=== PATIENT | female | born 1995 | race Asian ===

== ENCOUNTER 2024-03-02 16:39 | Emergency (ER) | payer OTHER ==
[2024-03-02 17:37] LABS: Absolute Basophils 0.1 K/uL (0-0.5); Absolute Eosinophils 0.1 K/uL (0-0.5); Absolute Monocytes 0.6 K/uL (0.1-1.3); Absolute Neutrophil 3.9 K/uL (1.8-8.0); Basophils % 0.8 % (0-1.3); Eosinophils % 1.7 % (0-4.4); Hematocrit 38.2 % (36.0-45.0); Hemoglobin 12.8 g/dL (12.0-15.0); Lymphocytes % 39.1 % (15.3-44.8); MCH 28.9 pg (27.0-35.0); MCHC 33.4 g/dL (32.0-36.0); MCV 86.6 fL (80-100); MPV 7.4 fL (7.6-11.3); Monocytes % 7.7 % (3.3-12.3); Neutrophils % 50.7 % (41.7-73.7); Platelets 272 thou/uL (152-406); RBC Red Blood Cell Count 4.42 M/uL (3.86-4.86); Red Cell Distribution Width 13.7 % (12.1-15.2)
[2024-03-02 17:40] LABS: Specific Gravity 1.024 (1.005-1.030); Sqamous Epithelial <5 /HPF (None Seen); Urine Bacteria None Seen /HPF (<20); Urine Bilirubin NEGATIVE (Negative); Urine Blood 1+ (Negative); Urine Clarity Clear (Clear); Urine Color Light-Yellow (Yellow); Urine Culture Reflex Order NOT NEEDED; Urine Glucose TRACE (Negative); Urine Ketones NEGATIVE (Negative); Urine Microscopic Reflex YN ORDER UMIC; Urine Mucus Slight /HPF (None Seen); Urine Nitrite NEGATIVE (Negative); Urine Protein NEGATIVE (Negative); Urine RBC <5 /HPF (None Seen); Urine Urobilinogen Normal (Normal); Urine WBC <5 /HPF (<5); Urine pH 6.5 (5.0-7.0)
--- NOTE | 2024-03-02 17:49 | RAD REPORT ---
EXAM DESCRIPTION: US - Transvaginal OB - 03/02/2024 5:43 pm CLINICAL HISTORY: bleeding COMPARISON: <Comparisons> FINDINGS: A single gestational sac is seen within the uterus. The sac is oblong. No yolk sac or embr yo seen. The maternal adnexa and ovaries are within normal limits. Normal Doppler blood flow was demonstrated to both ovaries. IMPRESSION: Single oblong gestational sac in the fundal aspect of the uterus. There is no evidence o f yolk sac or embryo at this time. Recommend serial HCG level measurements and follow-up sonography in 7-10 days.
[2024-03-02 18:03] LABS: Specific Gravity 1.024 (1.005-1.030)
[2024-03-02 18:19] LABS: Anion Gap 7.8 mEq/L (5.0-15.0)
[2024-03-02 18:21] LABS: Potassium 3.8 mEq/L (3.5-5.1)
--- NOTE | 2024-03-02 19:09 | ER ---
Nurse's Notes [facility] Name: Eli Ashton Age: 28 yrs Sex: Female : 1995 Arrival Date: 03/02/2024 Time: 16:39 Bed 5 Private MD: Diagnosis: Threatened Presentation: 03/02 16:47 Chief complaint: Patient states: approx 6 weeks , started spotting yesterday. iw Coronavirus screen: At this time, the client does not indicate any symptoms associated with coronavirus-19. Ebola Screen: Patient negative for fever greater than or equal to 101.5 degrees Fahrenheit, and additional compatible Ebola Virus Disease symptoms Patient denies exposure to infectious person. Patient denies travel to an Ebola-affected area in the 21 days before illness onset. No symptoms or risks identified at this time. Initial Sepsis Screen: Does the patient meet any 2 criteria? No. Patient's initial sepsis screen is negative. Does the patient have a suspected source of infection? No. Patient's initial sepsis screen is negative. Risk Assessment: Do you want to hurt yourself or someone else? Patient reports no desire to harm self or others. Onset of symptoms was March 01, 2024. 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 - Infectious Disease History:: Denies. - Social history:: Smoking status: Patient denies any tobacco usage or history of. Screenin:23 [facility] ED Fall Risk Assessment (Adult) History of falling in the last 3 months, kc6 including since admission No falls in past 3 months (0 pts) Confusion or Disorientation No (0 pts) Intoxicated or Sedated No (0 pts) Impaired Gait No (0 pts) Mobility Assist Device Used No (0 pt) Altered Elimination No (0 pt) Score/Fall Risk Level 0 - 2 = Low Risk. Abuse screen: Denies threats or abuse. Denies injuries from another. Nutritional screening: No deficits noted. Tuberculosis screening: No symptoms or risk factors identified. Assessment: 17:23 General: Appears in no apparent distress. comfortable, well groomed, well developed, kc6 Behavior is calm, cooperative, appropriate for age. Pain: Denies pain. Neuro: Level of Consciousness is awake, alert, obeys commands, Oriented to person, place, time, situation, Appropriate for age. Cardiovascular: Capillary refill < 3 seconds. Respiratory: Airway is patent Trachea midline Respiratory effort is even, unlabored, Respiratory pattern is regular, symmetrical. GI: No signs and/or symptoms were reported involving the gastrointestinal system. : Urine is clear, Reports vaginal bleeding that is bright red, spotty. EENT: No signs and/or symptoms were reported regarding the EENT system. Derm: No signs and/or symptoms reported regarding the dermatologic system. Skin is intact, is healthy with good turgor, Skin is pink, warm \T\ dry. Musculoskeletal: No signs and/or symptoms reported regarding the musculoskeletal system. Circulation, motion, and sensation intact. Capillary refill < 3 seconds, Range of motion: intact in all extremities. 18:23 Reassessment: Patient appears in no apparent distress at this time. No changes from kc6 previously documented assessment. Patient and/or family updated on plan of care and expected duration. Pain level reassessed. Patient is alert, oriented x 3, equal unlabored respirations, skin warm/dry/pink. Vital Signs: 16:47 BP 108 / 73; Pulse 86; Resp 16; Temp 98.3; Pulse Ox 99% ; Weight 65.77 kg; Height 4 ft. iw 9 in. ; 19:26 BP 110 / 76; Pulse 85; Resp 18; Temp 98; Pulse Ox 99% on R/A; rv 16:47 Body Mass Index 31.38 (65.77 kg, 144.78 cm) iw ED Course: 16:41 Patient arrived in ED. iw 16:42 Mary Lou Hardy [facility]-C [facility]. kb 16:42 Joel Anthony MD is Attending Physician. kb 16:47 Triage completed. iw 16:47 Arm band placed on. kc6 17:06 Senait Gonsalves, FRANKLIN is Primary Nurse. kc6 17:23 Patient has correct armband on for positive identification. Bed in low position. Call kc light in reach. Side rails up X 1. Client placed on continuous cardiac and pulse oximetry monitoring. NIBP monitoring applied. 17:44 Transvaginal OB In Process Unspecified. EDMS 19:00 Report given to FRANKLIN Katz. kc6 19:27 No provider procedures requiring assistance completed. IV discontinued, intact, rv bleeding controlled, No redness/swelling at site. Pressure dressing applied. Administered Medications: No medications were administered Medication: 19:27 VIS not applicable for this client. rv Outcome: 19:08 Discharge ordered by . abilio 19:28 Discharged to home ambulatory, rv 19:28 Condition: good 19:28 Discharge instructions given to patient, Instructed on discharge instructions, follow up and referral plans. Demonstrated understanding of instructions, follow-up care, 19:29 Patient left the ED. rv Signatures: Dispatcher [employer] EDMS Mary Lou Hardy, MODEL BUILDER DISPLAY-C MODEL BUILDER DISPLAY-Matilde Finn RN RN iw Vicente, Ronaldo, RN RN rv Campbell, Kaitlyn, RN RN kc6
--- NOTE | 2024-03-02 19:09 | EDPHYS ---
Physician Documentation [facility] Name: Eli Ashton Age: 28 yrs Sex: Female : 1995 Arrival Date: 03/02/2024 Time: 16:39 Bed 5 Private MD: ED Physician Joel Anthony HPI: 03/02 16:44 This 28 yrs old Female presents to ER via Unassigned with complaints of Vaginal kb Bleeding, + Preg <12wks. 16:44 Pt is a 28 year old female who presents for vaginal spotting that started yesterday. kb Denies abd pain. A1. LMP 12/14/23. . 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 - Infectious Disease History:: Denies. - Social history:: Smoking status: Patient denies any tobacco usage or history of. ROS: 16:44 Constitutional: As per HPI kb Exam: 16:44 Constitutional: This is a well developed, well nourished patient who is awake, alert, kb and in no acute distress. Head/Face: Normocephalic, atraumatic. ENT: Moist Mucous membranes Cardiovascular: Regular rate Respiratory: Respirations even and unlabored. No increased work of breathing. Talking in full sentences Abdomen/GI: Soft, non-tender. No distention Skin: Warm, dry with normal turgor. Normal color. MS/ Extremity: Pulses equal, no cyanosis. Neurovascular intact. Full, normal range of motion. Neuro: Awake and alert, GCS 15, oriented to person, place, time, and situation. Moves all extremities. Normal gait. Vital Signs: 16:47 BP 108 / 73; Pulse 86; Resp 16; Temp 98.3; Pulse Ox 99% ; Weight 65.77 kg; Height 4 ft. iw 9 in. ; 19:26 BP 110 / 76; Pulse 85; Resp 18; Temp 98; Pulse Ox 99% on R/A; rv 16:47 Body Mass Index 31.38 (65.77 kg, 144.78 cm) iw MDM: 16:42 Patient medically screened. kb 16:45 Data reviewed: vital signs, nurses notes. kb 19:09 Differential diagnosis: threatened Ab, inevitable Ab. Counseling: I had a detailed kb discussion with the patient and/or guardian regarding the historical points, exam findings, and any diagnostic results supporting the discharge/admit diagnosis, lab results, radiology results, the need for outpatient follow up, an OB/Gyne specialist, to return to the emergency department if symptoms worsen or persist or if there are any questions or concerns that arise at home. ED course: Pt has US scheduled for and follow up with OB on Friday. 03/02 17:33 Order name: Basic Metabolic Panel EDOK 03/02 17:33 Order name: HCG, Quantitative [facility] 03/02 17:33 Order name: CBC with Automated Diff [facility] 03/02 17:33 Order name: Test, Urine [facility] 03/02 17:33 Order name: Urinalysis w/ reflexes [facility] 03/02 17:33 Order name: ABO/RH typing [facility]OK 03/02 17:40 Order name: Test, Urine; Complete Time: 18:09 EDMS 03/02 17:40 Order name: Urinalysis w/ reflexes; Complete Time: 17:40 EDOK 03/02 17:42 Order name: CBC with Automated Diff; Complete Time: 17:43 EDMS 03/02 18:21 Order name: Basic Metabolic Panel; Complete Time: 18:23 EDMS 03/02 18:21 Order name: HCG, Quantitative; Complete Time: 18:23 [facility]OK 03/02 18:47 Order name: ABO/RH typing; Complete Time: 18:56 EDMS 03/02 17:30 Order name: Transvaginal OB [facility]OK 03/02 17:50 Order name: US; Complete Time: 17:52 EDMS 03/02 16:46 Order name: IV Saline Lock; Complete Time: 17:22 kb 03/02 16:46 Order name: Labs collected and sent; Complete Time: 17:22 kb 03/02 16:46 Order name: NPO; Complete Time: 17:06 kb Administered Medications: No medications were administered Disposition Summary: 03/02/24 19:08 Discharge Ordered Notes: Location: Home kb Condition: Stable kb Diagnosis - Threatened kb Followup: kb - With: Emergency Department - When: As needed - Reason: Worsening of condition Followup: kb - With: Private Physician - When: 2 - 3 days - Reason: Recheck today's complaints, Continuance of care, Re-evaluation by your physician Discharge Instructions: - Discharge Summary Sheet kb - Threatened Miscarriage, [id number] kb - Vaginal Bleeding During , First Trimester, [id number] kb Forms: - Medication Reconciliation Form kb - Antibiotic Education kb - Prescription Opioid Use kb - Patient Portal Instructions kb - Leadership Thank You Letter kb Signatures: Dispatcher [employer] EDMS Mary Lou Hardy, SLOT KEY PERSON-C SLOT KEY PERSON-Matilde Finn RN RN iw Corrections: (The following items were deleted from the chart) 16:47 16:47 ABO/RH TYPING+BB.LAB.BRZ ordered. EDMS EDMS 16:47 16:47 BASIC METABOLIC PANEL+C.LAB.BRZ ordered. EDMS EDMS 16:47 16:47 CBC+H.LAB.BRZ ordered. EDMS EDMS 16:47 16:47 Test, Urine+UC.LAB.BRZ ordered. EDMS EDMS 16:47 16:47 QUANTITATIVE HCG+C.LAB.BRZ ordered. EDMS EDMS 16:47 16:47 Urinalysis+U.LAB.BRZ ordered. EDMS EDMS
[2024-03-02 19:36] VITALS: BP 110/76; TEMP 98; O2SAT 99
== END 2024-03-02 19:29 | disposition home or self-care (01) ==
LOC: ER 16:39
DX: O20.0 Threatened abortion (principal); Z3A.00 Weeks of gestation of pregnancy not specified
CPT/HCPCS: 36415; 76817; 80048; 81001; 81025; 84702; 85025; 86900; 86901; 99283